=== PATIENT | male | born 1935 | race Two or more races ===

== ENCOUNTER 2018-04-05 08:12 | Outpatient (CLI) | payer OTHER ==
[~2018-04-05 08:12] MED LIST: AVANDIA4 MG PO; GLIMEPIRIDE4 MG PO; VASOTEC20 MG PO; ZANTAC150 M3 PO; ZOCOR20 MG PO
== END 2018-04-05 08:16 | disposition home or self-care (01) ==
LOC: RAD 08:12
DX: J45.998 Other asthma (principal)

== ENCOUNTER 2018-07-13 09:48 | Inpatient (IN) | payer OTHER ==
[~2018-07-13] VITALS: Ht 160 cm; Wt 72.6 kg
[2018-07-13] MEDS ORDERED: AMABELZ 0.5 MG1 EACH (10:19)
[2018-07-13] MEDS ORDERED: STERILE SALINE126 ML (10:19)
[2018-07-13] MEDS ORDERED: GLIMEPIRIDE4 MG (10:19)
[2018-07-13] MEDS ORDERED: HUMULIN N100 UNIT/2 (10:20)
[2018-07-13] MEDS ORDERED: COZAAR25 MG (10:20)
[2018-07-13] MEDS ORDERED: JANUVIA50 MG (10:20)
[2018-07-13] MEDS ORDERED: DITROPAN XL10 MG (10:20)
[2018-07-13] MEDS ORDERED: ZOCOR40 MG (10:21)
[2018-07-13] MEDS ORDERED: CARDURA1 MG PO (10:21)
--- NOTE | 2018-07-13 10:21 | NUR ---
PACIENTE CON REFERIDO MEDICO DEL DR. Jordana BERGER EN LA QUE REFIERE HIPOACTIVIDD, DESORIENTADPO Y SE REALIZA DX >500MG/DL
--- NOTE | 2018-07-13 11:25 | NUR ---
SE RECIBE PTE MASCULINO DE 83 YRS ALERTA CONCIETE Y TRANQUILO EN COMPANIA DE FAMILIAR. PTE ES EVALUADO POR EL PRABHU ASH QUEIN ORDENA TRATAMIENTO LA CUAL SE EJECUTA ORDEN MEDICA. SE MANTIENE BAJO OBSERVACION POR CAMBIOS.
== END 2018-07-25 19:49 | DRG 637 ==
LOC: ER 09:48 → ICU-2 15:26 → SEC-K 07-17 20:59 → MEDJ 07-17 21:08 → MEDI 07-17 21:48
PROVIDERS: ADMIT Specialist
PROC: BH4CZZZ Ultrasonography of Head and Neck (ICD-10-PCS; principal; 2018-07-13)
PROC: 0T9B70Z Drainage of Bladder with Drainage Device, Via Natural or Artificial Opening (ICD-10-PCS; 2018-07-13)
PROC: 4A12X4Z Monitoring of Cardiac Electrical Activity, External Approach (ICD-10-PCS; 2018-07-17)
PROC: B246ZZZ Ultrasonography of Right and Left Heart (ICD-10-PCS; 2018-07-19)
DX: E11.00 Type 2 diabetes mellitus with hyperosmolarity without nonketotic hyperglycemic-hyperosmolar coma (NKHHC) (principal); A41.9 Sepsis, unspecified organism; N17.9 Acute kidney failure, unspecified; C79.51 Secondary malignant neoplasm of bone; N18.4 Chronic kidney disease, stage 4 (severe); B37.41 Candidal cystitis and urethritis; I67.82 Cerebral ischemia; F05 Delirium due to known physiological condition; C61 Malignant neoplasm of prostate; Z79.4 Long term (current) use of insulin; E11.22 Type 2 diabetes mellitus with diabetic chronic kidney disease; E11.65 Type 2 diabetes mellitus with hyperglycemia; I12.9 Hypertensive chronic kidney disease with stage 1 through stage 4 chronic kidney disease, or unspecified chronic kidney disease; D63.1 Anemia in chronic kidney disease; K40.90 Unilateral inguinal hernia, without obstruction or gangrene, not specified as recurrent; I25.10 Atherosclerotic heart disease of native coronary artery without angina pectoris; E78.49 Other hyperlipidemia; N39.45 Continuous leakage; Z74.01 Bed confinement status; J31.0 Chronic rhinitis; R63.0 Anorexia; Z90.89 Acquired absence of other organs; R13.13 Dysphagia, pharyngeal phase; I69.891 Dysphagia following other cerebrovascular disease; F03.90 Unspecified dementia, unspecified severity, without behavioral disturbance, psychotic disturbance, mood disturbance, and anxiety

== ENCOUNTER 2018-08-02 08:57 | Inpatient (IN) | payer OTHER ==
[~2018-08-02] VITALS: Ht 157.5 cm; Wt 93.0 kg
[~2018-08-02 08:57] MED LIST changes: +AMABELZ 0.5 MG1 EACH; +CARDURA1 MG PO; +COZAAR25 MG; +DITROPAN XL10 MG; +GLIMEPIRIDE4 MG; +HUMULIN N100 UNIT/2; +JANUVIA50 MG; +STERILE SALINE126 ML; +ZOCOR40 MG
--- NOTE | 2018-08-02 09:09 | NUR ---
PACIENTE ALERTA Y ORIENTADO EN PERSONA. SE RECIBE EN AMBULANCIA. PARAMEDICOS REFIEREN TRAER AL PACIENTE POR FALTA DE APETITO. REFIERE DR. TYLER BERGER LO ENVIA A LA ALLY DE EMERGENCIA. SE UBICA EN JEWEL #13 CON BARANDNAS ELEVADAS.
[2018-08-02] MEDS ORDERED: DITROPAN XL15 MG (09:44)
[2018-08-02] MEDS ORDERED: LASIX40 MG (09:44)
[2018-08-02] MEDS ORDERED: ISOSORBIDE DINI30 MG (09:44)
[2018-08-02] MEDS ORDERED: VASOTEC5 MG (09:45)
[2018-08-02] MEDS ORDERED: ZOCOR20 MG (09:45)
--- NOTE | 2018-08-02 10:22 | NUR ---
PACIENTE ALERTA Y ORIENTADO EN PERSONA. PACIENTE NO QUIERE HABLAR MERY LE DICE TU NOMBRE ES NANETTE CEDRES Y MUEVE LA PETTY DICIENDO QUE SI. PACIENTE MENCIONO JOYCE NOMBRE MERY NO DICE MAS NADA. SE ORIENTO A PACIENTE Y FAMILIAR SOBRE TX Y PROCEDIMIENTO A REALIZAR Y REFIRIO ENTENENDER. SE REALIZA MUESTRAS DE LABORATO- DAMIEN BAJO MEDIDAS ASEPTICAS. CANALIZACION PATENTE Y RICH DE EDEMA Y ERITEMA.SE CATETERIZO A PACIENTE Y ELIMINO 500ML DE ORINA AMARILLO SYLVAIN. SE MANTIENE BAJO OBSERVACION POR CAMBIOS SIGNIFICATIVOS.
== END 2018-08-09 21:07 | disposition home or self-care (01) | DRG 70 ==
LOC: ER 08:57 → MEDI 20:16 → MEDJ 20:16 → MEDI 08-09 21:07
PROVIDERS: ADMIT Specialist
PROC: B020ZZZ Computerized Tomography (CT Scan) of Brain (ICD-10-PCS; principal; 2018-08-02)
PROC: B030ZZZ Magnetic Resonance Imaging (MRI) of Brain (ICD-10-PCS; 2018-08-04)
PROC: B335ZZZ Magnetic Resonance Imaging (MRI) of Bilateral Common Carotid Arteries (ICD-10-PCS; 2018-08-04)
PROC: B338ZZZ Magnetic Resonance Imaging (MRI) of Bilateral Internal Carotid Arteries (ICD-10-PCS; 2018-08-04)
DX: G93.41 Metabolic encephalopathy (principal); Q79.4 Prune belly syndrome; N39.0 Urinary tract infection, site not specified; N18.4 Chronic kidney disease, stage 4 (severe); N17.8 Other acute kidney failure; C79.51 Secondary malignant neoplasm of bone; E86.0 Dehydration; F01.50 Vascular dementia, unspecified severity, without behavioral disturbance, psychotic disturbance, mood disturbance, and anxiety; E11.65 Type 2 diabetes mellitus with hyperglycemia; R63.0 Anorexia; Z74.01 Bed confinement status; D63.1 Anemia in chronic kidney disease; I13.10 Hypertensive heart and chronic kidney disease without heart failure, with stage 1 through stage 4 chronic kidney disease, or unspecified chronic kidney disease; L89.311 Pressure ulcer of right buttock, stage 1; C61 Malignant neoplasm of prostate; K22.0 Achalasia of cardia; N39.498 Other specified urinary incontinence; B96.5 Pseudomonas (aeruginosa) (mallei) (pseudomallei) as the cause of diseases classified elsewhere
CPT/HCPCS: 70544